=== PATIENT | female | born 1970 | race Caucasian/White ===

== ENCOUNTER 2017-03-19 21:40 | Emergency (ER) | payer OTHER ==
[~2017-03-19] VITALS: Ht 160 cm; Wt 70.5 kg
[2017-03-19 21:49] VITALS: BP 155/95; PULSE 85; RESP 16; TEMP 98.3; O2SAT 99
[2017-03-19] MEDS ORDERED: ORTH7TAB PO (21:59)
[2017-03-19] MEDS ORDERED: HYDR25TA5 PO (21:59)
[2017-03-19] MEDS ORDERED: ATOR10TA15 PO (21:59)
[2017-03-19] MEDS ORDERED: PRIL20CA9 PO (21:59)
--- NOTE | 2017-03-19 22:42 | PD ---
HPI Chief Complaint: Injury Time Seen by Provider: 22:33 Travel History International Travel<30 days: Yes Contact w/Intl Traveler<30days: Yes Name of Country Traveled to: [place] Traveled to known affect area: No History of Present Illness HPI 46-year-old female presents to the emergency room for evaluation of right knee pain and swelling after injuring at work. Patient injured her knee approximately 4 hours prior to arrival. States she was doing a training exercise at work where she had to hit a punching bag with a baton and twisted her knee wrong. She states it felt as though her kneecap popped out of place and then went back in place on its own. Since then she has had knee pain with ambulation. Pain is controlled at rest. She took 2 Tylenol without significant relief in symptoms. Patient tried to run on her knee during the next exercise but was unable to and decided to come to the hospital to be evaluated. She denies lower extremity paresthesias. Denies any other injuries. PFSH Past Medical History ?: Not LMP: THREE WEEKS AGO Social History Tobacco Use: No Allergies-Medications (Allergen,Severity, Reaction): Coded Allergies: No Known Allergies (Verified , 03/19/17) Reported Meds & Prescriptions Reported Meds & Active Scripts Active Reported Ortho-Novum (Norethindrone-Ethinyl Estradiol) 0.5/0.75/1-35 Mg-Mcg Tab 1 Tab PO DAILY Prilosec (Omeprazole) 20 Mg Cap 20 Mg PO DAILY Atorvastatin (Atorvastatin Calcium) 10 Mg Tab 10 Mg PO DAILY Hydrochlorothiazide 25 Mg Tab 25 Mg PO DAILY Review of Systems Except as stated in HPI: all other systems reviewed are Neg Physical Exam Narrative GENERAL: Well-nourished, well-developed female in no acute distress. Afebrile. SKIN: Focused skin assessment warm/dry. No erythema or ecchymosis. HEAD: Normocephalic. EYES: No scleral icterus. No injection or drainage. NECK: Supple, trachea midline. No JVD or lymphadenopathy. CARDIOVASCULAR: Regular rate and rhythm without murmurs, gallops, or rubs. RESPIRATORY: Breath sounds equal bilaterally. No accessory muscle use. EXTREMITY: Right knee is tender to palpation on the lateral aspect. Patient can extend fully and flex to 80 before she has some pain. 2+ dorsalis pedis pulse. Negative squeeze test. No fibular head or patellar tenderness. No significant edema or obvious effusion. Data Data Last Documented VS Vital Signs Date Time Temp Pulse Resp B/P Pulse Ox O2 Delivery O2 Flow Rate FiO2 03/19/17 21:49 98.3 85 16 155/95 99 Orders Knee, Complete (4vws) (03/19/17 ) [facility] Medical Decision Making Medical Screen Exam Complete: Yes Emergency Medical Condition: Yes Medical Record Reviewed: Yes Differential Diagnosis Avulsion fracture versus sprain versus strain Narrative Course 46-year-old female presents to the emergency room for evaluation of right knee pain and swelling after twisting it about 4 hours prior to arrival. She has been ambulatory since onset of symptoms. Right lower extremity is neurovascularly intact with 2+ dorsalis pedis pulse. Strength 5/5 and equal. Tenderness to palpation of the lateral aspect. No obvious deformity. No edema or effusion. No erythema or ecchymosis. Patient likely has a sprain and will need an MRI for further evaluation. X-rays obtained to evaluate for avulsion fracture. X-ray is negative. Likely knee sprain. Patient placed in knee immobilizer and told to follow up for outpatient MRI to evaluate for ligamentous or meniscal injury. Patient told to return to the emergency room for sinus symptoms. She understands and agrees to plan. Diagnosis Primary Impression: Knee sprain Qualified Code: S83.91XA - Sprain of right knee, unspecified ligament, initial encounter Referrals: Primary Care Physician Patient Instructions: General Instructions, Knee Sprain (ED) Additional Instructions: Rest and drink plenty of fluids. Use knee immobilizer as needed for stability. Take ibuprofen with food as directed, as needed for pain. Apply ice to the affected area for 20 minutes at a time, as needed for pain and swelling. Follow-up with a primary care physician. Return to the emergency room for worsening symptoms. Disposition: 01 DISCHARGE HOME Condition: Stable Araceli Martinez March 19, 2017 22:42
--- NOTE | 2017-03-19 22:49 | RADHPO ---
EXAM DATE/TIME: 03/19/2017 22:31 [facility] COMPARISON: No previous studies available for comparison. INDICATIONS : Right knee pain after fall yesterday MEDICAL HISTORY : None. SURGICAL HISTORY : None. ENCOUNTER: Initial ACUITY: 1 day PAIN SCORE: 8/10 LOCATION: Right lateral knee FINDINGS: Four view examination of the right knee demonstrates no evidence of fracture or dislocation. Bony mi neralization is normal. The articular surfaces are intact. The suprapatellar soft tissues have a no rmal configuration. CONCLUSION: 1. Negative examination of the knee. Kirby Choudhary MD on March 19, 2017 at 22:47 Board Certified Radiologist. This report was verified electronically.
[2017-03-19 23:09] VITALS: BP 154/89
== END 2017-03-19 23:13 | disposition home or self-care (01) ==
LOC: PHEFT 21:40
DX: S83.91XA Sprain of unspecified site of right knee, initial encounter (principal); X50.1XXA Overexertion from prolonged static or awkward postures, initial encounter; Y99.0 Civilian activity done for income or pay
CPT/HCPCS: 73564; 99283; L1830